=== PATIENT | female | born 1990 | race American Indian/Alaskan Native ===

== ENCOUNTER 2019-07-18 11:00 | Emergency (ER) | payer MEDICAID ==
[2019-07-18] MEDS ORDERED: ASPIRIN PO ONE (11:15)
--- NOTE | 2019-07-18 11:16 | Event Note ---
ED Screening Note Date of service: 07/18/19 Time: 11:12 ED Screening Note: This is a 29 y.o. F. that presents to the ER with chest pain and sob for 30 minutes while at work. PMH of HTN Denies recent travel, palpitations, weakness, n/v, chills, fever, and cough This initial assessment/diagnostic orders/clinical plan/treatment(s) is/are subject to change based on patients health status, clinical progression and re- assessment by fellow clinical providers in the ED. Further treatment and workup at subsequent clinical providers discretion. Patient/guardian urged not to elope from the ED as their condition may be serious if not clinically assessed and managed. Initial orders include: CXR, EKG, & labs
--- NOTE | 2019-07-18 11:36 | Emergency Department Report ---
ED Chest Pain HPI - General Chief Complaint: Chest Pain Stated Complaint: CHEST PAIN/SOB Time Seen by Provider: 07/18/19 11:12 Source: patient Mode of arrival: Ambulatory Limitations: No Limitations - History of Present Illness Initial Comments: Patient is 29 years old female with history of of hypertension on amlodipine and lisinopril. Patient presented to the ER complaining of sudden onset of chest pain, started 1 hour ago. Patient described her pain as tightness to the right upper chest. Patient also had a shortness of breath. Patient stated that symptoms is much better now. Patient denied any recent travel. No lower extremity swelling or pain. MD Complaint: chest pain -: Sudden Onset: during rest Pain Location: right chest Pain Radiation: none Quality: tightness Consistency: intermittent - Related Data Previous Rx's Medication Instructions Recorded Last Taken Type Methylergonovine [Methergine] 0.2 mg PO Q8HR #6 tablet 11/13/13 Unknown Rx HYDROcodone/APAP 10-325 [Wallace 1 each PO Q8HR PRN #20 tablet 04/28/14 Unknown Rx 10-325 mg TAB] Naproxen [Naprosyn TAB] 500 mg PO BID #30 tablet 04/28/14 Unknown Rx Ferrous Sulfate [Feosol 325 MG tab] 325 mg PO BID #60 tablet 08/16/15 Unknown Rx Ibuprofen [Motrin 600 MG tab] 600 mg PO Q6HR PRN #40 tablet 08/16/15 Unknown Rx Sulfamethoxazole/Trimethoprim 1 each PO BID #20 tablet 11/15/15 Unknown Rx [Bactrim DS TAB] Allergies Allergy/AdvReac Type Severity Reaction Status Date / Time No Known Allergies Allergy Verified 11/15/15 15:34 Heart Score - HEART Score History: Slightly suspicious EKG: Non-specific Age: < 45 Risk factors: 1-2 risk factors Troponin: < normal limit HEART Score: 2 ED Review of Systems ROS: Stated complaint: CHEST PAIN/SOB Other details as noted in HPI Comment: All other systems reviewed and negative Constitutional: denies: chills, fever Respiratory: shortness of breath. denies: cough Cardiovascular: chest pain. 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 - Surgical History Past Surgical History?: Yes Additional Surgical History: x1/ ovarian cyst removal - Social History Smoking Status: Current Every Day Smoker Substance Use Type: Alcohol - Medications Home Medications: Home Medications Medication Instructions Recorded Confirmed Last Taken Type Methylergonovine [Methergine] 0.2 mg PO Q8HR #6 tablet 11/13/13 Unknown Rx HYDROcodone/APAP 10-325 [Wallace 1 each PO Q8HR PRN #20 tablet 04/28/14 Unknown Rx 10-325 mg TAB] Naproxen [Naprosyn TAB] 500 mg PO BID #30 tablet 04/28/14 Unknown Rx Ferrous Sulfate [Feosol 325 MG tab] 325 mg PO BID #60 tablet 08/16/15 Unknown Rx Ibuprofen [Motrin 600 MG tab] 600 mg PO Q6HR PRN #40 tablet 08/16/15 Unknown Rx Sulfamethoxazole/Trimethoprim 1 each PO BID #20 tablet 11/15/15 Unknown Rx [Bactrim DS TAB] ED Physical Exam - General Limitations: No Limitations General appearance: alert, in no apparent distress - Head Head exam: Present: atraumatic, normocephalic, normal inspection - Eye Eye exam: Present: normal appearance - ENT ENT exam: Present: normal exam, normal orophraynx, mucous membranes moist - Neck Neck exam: Present: normal inspection, full ROM. Absent: tenderness, meningismus - Respiratory Respiratory exam: Present: normal lung sounds bilaterally - Cardiovascular Cardiovascular Exam: Present: regular rate, normal rhythm, normal heart sounds - GI/Abdominal GI/Abdominal exam: Present: soft, normal bowel sounds. Absent: distended, te nderness, guarding, rebound, rigid - Extremities Exam Extremities exam: Present: normal inspection, full ROM, normal capillary refill - Back Exam Back exam: Present: normal inspection, full ROM. Absent: CVA tenderness (R), CVA tenderness (L), muscle spasm - Neurological Exam Neurological exam: Present: alert, oriented X3, CN II-XII intact - Psychiatric Psychiatric exam: Present: normal mood ED Course Vital Signs 07/18/19 07/18/19 07/18/19 11:11 11:25 13:41 Temperature 98.3 F 98.7 F Pulse Rate 95 H 82 Respiratory 18 18 18 Rate Blood Pressure 177/109 Blood Pressure 145/86 [Left] O2 Sat by Pulse 100 99 Oximetry ED Medical Decision Making - Lab Data Result diagrams: 07/18/19 11:44 07/18/19 11:44 - EKG Data -: EKG Interpreted by Me EKG shows normal: sinus rhythm Rate: normal - EKG Data Interpretation: no acute changes - Radiology Data Radiology results: report reviewed - Medical Decision Making Patient is 29 years old female with history of of hypertension on amlodipine and lisinopril. Patient presented to the ER complaining of sudden onset of chest pain, started 1 hour ago. Patient described her pain as tightness to the right upper chest. Patient also had a shortness of breath. Patient stated that symptoms is much better now. Patient denied any recent travel. No lower extre mity swelling or pain. EKG is unremarkable. Chest x-ray is negative for acute finding. Labs reviewed and is unremarkable including a negative troponin and a d-dimer. Patient symptoms completely resolved. Patient advised to follow-up with her primary care physician in the next 2-3 days and to attend to the ER if symptoms are not improved. Critical care attestation.: If time is entered above; I have spent that time in minutes in the direct care of this critically ill patient, excluding procedure time. ED Disposition Clinical Impression: Chest pain, Hypertension Disposition: -01 TO HOME OR SELFCARE Is pt being admited?: No Condition: Stable Instructions: Chest Pain (ED), Hypertension (ED) Referrals: ZE REA MD [Primary Care Provider] - 3-5 Days
[2019-07-18 12:06] LABS: Basophils % (Auto) 0.7 % (0.0-1.8); Eosinophils # (Auto) 0.1 K/mm3 (0.0-0.4); Eosinophils % (Auto) 1.4 % (0.0-4.3); Hemoglobin 11.1 gm/dl (10.1-14.3); Lymphocytes # (Auto) 2.2 K/mm3 (1.2-5.4); Lymphocytes % (Auto) 41.9 % (13.4-35.0); Mean Corpuscular HGB Conc 33 % (30-34); Mean Corpuscular Volume 88 fl (79-97); Monocytes # (Auto) 0.3 K/mm3 (0.0-0.8); Monocytes % (Auto) 6.3 % (0.0-7.3); Platelet Count 241 K/mm3 (140-440); Red Blood Count 3.89 M/mm3 (3.65-5.03); Red Cell Distribution Width 16.1 % (13.2-15.2)
[2019-07-18 12:15] LABS: BUN/Creatinine Ratio 15; Blood Urea Nitrogen 9 mg/dL (7-17); Hemolysis Index 12
--- NOTE | 2019-07-18 13:36 | XRay Report ---
CHEST 1 VIEW INDICATION: Chest Pain UPT. COMPARISON: None FINDINGS: Support devices: None. Heart: Within normal limits. Lungs/Pleura: No acute air space or interstitial disease. Additional findings: None. IMPRESSION: No acute findings. Signer Name: Narciso Hitchcock Jr, MD Signed: 07/18/2019 1:32 PM Workstation Name: [id number]
[2019-07-18 13:42] VITALS: BP 145/86
== END 2019-07-18 14:02 | disposition home or self-care (01) ==
LOC: ED 11:00
DX: R07.89 Other chest pain (principal); I10 Essential (primary) hypertension; F17.200 Nicotine dependence, unspecified, uncomplicated; Z79.899 Other long term (current) drug therapy
CPT/HCPCS: 36415; 71045; 80048; 83880; 84484; 84703; 85025; 85379; 93005; 93010